=== PATIENT | male | born 1955 | race Caucasian/White ===

== ENCOUNTER 2019-07-24 07:30 | Emergency (ER) | payer MEDICARE, MEDICAID, SELFPAY ==
[2019-07-24] VITALS (10 sets, daily range): BP systolic 148–215; BP diastolic 84–121; PULSE 80–117; RESP 16–21; TEMP 36.6–37.2; O2SAT 96–100; BMI 25.7
--- NOTE | 2019-07-24 07:38 | ED_ITS ---
HPI - Nausea/Vomiting/Diarrhea General: Chief complaint: Abdominal Pain Stated complaint: n/v Time Seen by Provider: 07/24/19 07:38 Source: patient Mode of arrival: ambulatory History of Present Illness: MD elicited complaint: nausea, vomiting and abdominal pain Associated nausea: Yes Associated symtoms: Reports nausea Review of Systems Const: Denies: fever or chills ENMT: Denies: throat pain GI: Reports: abdominal pain, nausea and vomiting; Denies: coffee grounds in vomit or diarrhea PFSH ED PFSH: Medical History Alcoholism Allergic rhinitis due to pollen Chronic viral hepatitis C Malignant hypertension Nicotine abuse Family History Other CAD (coronary artery disease) Cancer Hyperlipidemia Hypertension Stroke Social History Smoking and tobacco status: former smoker Alcohol intake: current Agree to transfusion: Yes (07/18/2019) Physical Exam Narrative: EXAM NARRATIVE: Pt presents to ER with complaints of severe upper abdominal pain for three days. He states he cannot drink water. He also drinks daily and has not been able to keep any fluids down. His BP is very elevated and he appears very anxious. Const: COMMON NORMALS: no apparent distress, oriented x3, no limitations and alert GENERAL APPEARANCE: anxious, well hydrated and odor of alcohol detected ORIENTATION/CONSCIOUSNESS: Yes awake, Yes oriented to person, Yes oriented to place and Yes oriented to time HENMT: COMMON NORMALS: normocephalic, head/scalp atraumatic, external ears normal, EAC's normal, TM's normal bilaterally and external nose normal HEAD & SCALP: normal to inspection, normocephalic and atraumatic FACE & SINUS: no rmal facial exam, sinuses nontender and face symmetric NOSE: external nose normal, nares normal and no nasal discharge EXTERNAL EAR: Yes external ears normal EXTERNAL AUDITORY CANAL: EAC's normal TYMPANIC MEMBRANE: TM's normal bilaterally MOUTH: oral and palatal mucosa normal, lip normal and tongue normal THROAT: posterior oropharynx normal, tonsils normal and uvula midline Eye: COMMON NORMALS: PERRL, EOMs intact bilaterally and conjunctivae normal GENERAL EYE: normal appearance of both eyes and normal light reflex EYELID: eyelids normal CONJUNCTIVA: Yes conjunctivae normal PUPIL: Yes PERRL EOM: Yes EOM abnormal DIRECT OPHTHALMOSCOPY: Yes normal light reflex Neck/C-Spine: COMMON NORMALS: full ROM, no lymphadenopathy, supple, no meningeal signs, no JVD and thyroid normal GENERAL: Yes normal visual inspection THYROID: thyroid normal CERVICAL SPINE: Yes cervical ROM normal and Yes normal cervical lordosis Lymph: LYMPHATIC: no lymphadenopathy noted Chest: COMMONS NORMALS: inspection of chest normal and palpation of chest normal Resp: COMMON NORMALS: normal respiratory effort, no retractions and clear to auscultation bilaterally AUSCULTATION: clear to auscultation bilaterally Cardio: COMMON NORMALS: no JVD, regular rate, regular rhythm, S1 normal heart sound, S2 normal heart sound, no gallops, no clicks, no murmurs, no rub and peripheral pulses 2+ throughout RATE: regular rate RHYTHM: regular rhythm HEART SOUNDS: S1 normal and S2 normal PERIPHERAL PULSES: pulses 2+ throughout GI: COMMON NORMALS: normal to inspection, nondistended, normoactive bowel sounds and soft to palpation; negative for non-tender AUSCULTATION: Yes normoactive bowel sounds PALPATION: Yes soft and Yes guarding (epigastric ) RECTAL EXAM: Yes deferred : COMMON NORMALS: Yes no CVA tenderness BLADDER/KIDNEY EXAM: Yes no CVA tenderness Back/Pelvis: COMMON NORMALS: no CVA tenderness Extremity: COMMON NORMALS: normal to inspection, full ROM, normal capillary refill, no joint enlargement, no clubbing, cyanosis or edema, no calf tenderness and no pedal edema GENERAL: Yes normal exam except as noted Neuro: COMMON NORMALS: oriented x3, moves all extremities, no focal motor deficits, no sensory deficits noted and gait normal SENSORIUM/ORIENTATION: Yes alert, Yes oriented to person, Yes oriented to place and Yes oriented to time MENINGEAL SIGNS: Yes no meningeal signs Psych: COMMON NORMALS: mental status grossly normal, thought process normal, cooperative, affect normal, speech normal and activity/motor behavior normal SPEECH: Yes normal speech THOUGHT PROCESS: normal thought process Skin: COMMON NORMALS: no rashes or lesions noted, no wounds and skin turgor normal GENERAL SKIN EXAM: no rashes or lesions noted and turgor normal Course ED course: Pt very anxious and in pain upon assessment. Pain meds ordered and IV fluids. Pt is pacing and unable to sit still. Reevaluation(s): Reevaluation #1: Awaiting urine. CT negative for any acute findings. Time: 09:26 Reevaluation #2: Pt vomiting after PO challenge. Meds ordered. Time: 10:30 Reevaluation #3: Pt continues to vomit with sips of water. More nausea IM meds given. Pt able to given urine sample. Oral clonidine in 20 min Time: 12:36 Additional Reevaluation(s): Pt resting comfortably after phenergan and able to hold down fluids. Labs unremarkable and UA does not show acute infection. Will proceed with DC. Vitals stable upon DC. Vital Signs: Vital signs: Vital Signs Temperature 97.9 F 07/24/19 07:33 Pulse Rate 98 07/24/19 12:00 Respiratory Rate 19 H 07/24/19 12:00 Blood Pressure 169/107 07/24/19 13:06 Pulse Oximetry 97 07/24/19 12:00 MDM - Nausea/Vomiting/Diarrhea Lab Data: Labs: Lab Results 07/24/19 07/24/19 07/24/19 Range/Units 07:50 07:50 07:50 WBC 10.6 H (4.0-10.0) 10^3/ uL RBC 5.24 (4.1-5.3) 10^6/u L Hgb 17.6 H (11.7-16.6) g/dL Hct 50.5 (42.0-52.0) % MCV 96.4 H (80-94) fL MCH 33.6 (28.0-34.0) pg MCHC 34.9 (30.0-36.0) g/dL RDW 13.2 (12.1-15.1) % Plt Count 247 (130-400) 10^3/c mm MPV 10.7 H (7.4-10.4) fL Neut % (Auto) 75.3 % Lymph % (Auto) 16.8 % [place] % (Auto) 7.1 % Eos % (Auto) 0.1 % Baso % (Auto) 0.3 % Neut # (Auto) 8.0 H (1.8-7.7) 10^3/u L Lymph # (Auto) 1.8 (0.8-4.8) 10^3/u L [place] # (Auto) 0.8 (0.2-0.9) 10^3/u L Eos # (Auto) 0.0 (0.0-0.8) 10^3/u L Baso # (Auto) 0.0 (0.0-0.1) 10^3/u L Nucleated RBC % (a uto) 0 % Nucleated RBCs # 0.0 /100WBC Sodium 139 (136-145) mmol/L Potassium 3.5 (3.5-5.1) mmol/L Chloride 98 (98-107) mmol/L Carbon Dioxide 23 (22-29) mmol/L Anion Gap 21.5 H (5-19) BUN 18 (8-23) mg/dL Creatinine 0.9 (0.7-1.2) mg/dL GFR Calculation 85.8 L (90-130) mL/min Glucose 150 H (65-115) mg/dL Calculated Osmolal ity 287 (285-295) mOsm/k g Calcium 10.8 H (8.5-10.5) mg/dL Total Bilirubin 1.1 (0.15-1.2) mg/dL AST 38 (0-40) U/L ALT 41 (0-41) U/L Alkaline Phosphata se 81 (40-130) IU/L Total Protein 9.0 H (6.6-8.7) g/dL Albumin 5.4 H (3.5-5.2) g/dL Globulin 3.6 (1.3-4.6) g/dL Urine Color (Yellow) Urine Appearance (CLEAR) Urine pH (5-7) Ur Specific Gravit y (1.005-1.030) Urine Protein (Negative) Urine Glucose (UA) (Normal) Urine Ketones (Negative) Urine Blood (Negative) Urine Nitrate (Negative) Urine Bilirubin (NEGATIVE) Urine Urobilinogen (Negative) mg/dL Ur Leukocyte Danna ase (Negative) Urine RBC (0-2) /hpf Urine WBC (0-5) /hpf Ur Squamous Epith Cells (0-5) Urine Bacteria (NONE) Hyaline Casts Urine Mucus Ethyl Alcohol < 10 (0-10) mg/dL //20 Range/Units 12:05 WBC (4.0-10.0) 10^3/ uL RBC (4.1-5.3) 10^6/u L Hgb (11.7-16.6) g/dL Hct (42.0-52.0) % MCV (80-94) fL MCH (28.0-34.0) pg MCHC (30.0-36.0) g/dL RDW (12.1-15.1) % Plt Count (130-400) 10^3/c mm MPV (7.4-10.4) fL Neut % (Auto) % Lymph % (Auto) % [place] % (Auto) % Eos % (Auto) % Baso % (Auto) % Neut # (Auto) (1.8-7.7) 10^3/u L Lymph # (Auto) (0.8-4.8) 10^3/u L [place] # (Auto) (0.2-0.9) 10^3/u L Eos # (Auto) (0.0-0.8) 10^3/u L Baso # (Auto) (0.0-0.1) 10^3/u L Nucleated RBC % (a uto) % Nucleated RBCs # /100WBC Sodium (136-145) mmol/L Potassium (3.5-5.1) mmol/L Chloride (98-107) mmol/L Carbon Dioxide (22-29) mmol/L Anion Gap (5-19) BUN (8-23) mg/dL Creatinine (0.7-1.2) mg/dL GFR Calculation (90-130) mL/min Glucose (65-115) mg/dL Calculated Osmolal ity (285-295) mOsm/k g Calcium (8.5-10.5) mg/dL Total Bilirubin (0.15-1.2) mg/dL AST (0-40) U/L ALT (0-41) U/L Alkaline Phosphata se (40-130) IU/L Total Protein (6.6-8.7) g/dL Albumin (3.5-5.2) g/dL Globulin (1.3-4.6) g/dL Urine Color Yellow (Yellow) Urine Appearance Clear (CLEAR) Urine pH 7 (5-7) Ur Specific Gravit y 1.010 (1.005-1.030) Urine Protein Trace (Negative) Urine Glucose (UA) Norm (Normal) Urine Ketones 1+ H (Negative) Urine Blood 2+ H (Negative) Urine Nitrate Negative (Negative) Urine Bilirubin Neg (NEGATIVE) Urine Urobilinogen Norm (Negative) mg/dL Ur Leukocyte Danna ase Negative (Negative) Urine RBC 0-4 H (0-2) /hpf Urine WBC None (0-5) /hpf Ur Squamous Epith Cells 0-4 H (0-5) Urine Bacteria Trace (NONE) Hyaline Casts 0-4 H Urine Mucus Trace Ethyl Alcohol (0-10) mg/dL Imaging Data^: CT Abd/Pel: Radiologist's impression: [facility] [address] [place] [address] CT Scan Report Signed Patient: Marty Chan Jr Unit #: [id number] : 1955 Age/Sex: 63 / M ADM Date: 07/24/19 Loc: ER Room/Bed: Attending Dr: Ordering Provider/Ordering MD: Karely Rodriguez NP Date of Service: 07/24/19 Procedure(s): CT abdomen [facility] [id number] Accession Number(s): [id number] Report Number: [id number] WS: [id number] CT scan of the abdomen without Oral and IV contrast. Additional two-dime nsional coronal and sagittal reconstruction was performed. 07/24/2019 Clinical Data: abd pain Comparison: None. DLP: 464.[address] scans at [facility] use at least one of these dose optimization techniques: automated exposure control; mA and/or kV adjustment per patient size (includes targeted exams where dose is matched to clinical indication); or iterative reconstruction. Findings: The lower lungs show no nodules, masses or effusions. The liver, spleen, adrenal glands and pancreas are normal. There is a small stone in the gallbladder. The kidneys show bilateral cysts, the largest on the right are 6.6 and 4.9 cm, and the largest on the left is 4.7 cm. No masses, hydronephrosis or renal calculi can be seen. The abdominal aorta is normal in size with minimal calcification in the wall.. The appendix is partly seen but there is no obvious appendicitis. The stomach, visualized small bowel and visualized colon show no abnormalities. There is fecal material in the colon. The lower portion of the small bowel and the distal colon are not imaged. No abscess, adenopathy, ascites, mass, obstruction or free air is seen. The bones of the lower thoracic and lumbar spine show moderate osteoarthritis. CT/CT abdomen wo con [id number] Impression: 1. Negative for acute intra-abdominal abnormalities. 2. Bilateral renal cysts. 3. The portions of the small bowel and colon that are imaged show no abnormalities. Dictated By: Tamie Barger MD Signed By: Tamie Barger MD Signed Date/Time: 07/24/19856 DD/ 7 Discharge Plan Discharge Patient Disposition: Home, Self-Care Clinical Impression: Gastroenteritis, Abdominal pain Condition: Stable Prescriptions: New promethazine 25 mg tablet 25 mg PO TID PRN (Reason: nausea and vomiting) Qty: 10 RF: 0 No Action metoprolol tartrate 25 mg tablet 25 mg PO BID RF: 0 clonidine HCl 0.1 mg tablet 0.1 mg PO BID RF: 0 cetirizine 10 mg tablet 10 mg PO DAILY PRN (Reason: Allergy Symptoms) RF: 0 lisinopril 40 mg tablet 40 mg PO DAILY RF: 0 amlodipine 10 mg tablet 10 mg PO DAILY RF: 0 folic acid 1 mg tablet 1 mg PO DAILY RF: 0 [id number] 1 mg tablet 1 tab PO DAILY RF: 0 thiamine HCl (vitamin B1) 250 mg tablet 250 mg PO DAILY RF: 0 ibuprofen 800 mg tablet 800 mg PO Q8H PRN (Reason: pain) Qty: 90 RF: 0 Referrals: Pattie Esteves FNP [Primary Care Provider] - Meir Benoit MD [Family Provider] - Discharge Diet: Advance as tolerated and Clear Liquid Discharge Activity: Increase activity as tolerated Patient Instructions: Cholecystitis (ED), Abdominal Pain (ED) Activity Restrictions/Additional Instructions: Clear fluids and advance as tolerated. Follow up with PCP if worsening or concerning symptoms. Coding Level of Care Code ED Manufacturing Recruiter for Chg Fwd Exam Comprehensive
--- NOTE | 2019-07-24 08:02 | CT_ITS ---
WS: [id number] CT scan of the abdomen without Oral and IV contrast. Additional two-dimensional coronal and sagittal reconstruction was performed. 07/24/2019 Clinical Data: abd pain Comparison: None. DLP: 464.[address] scans at [facility] use at least one of these dose optimization techniques: automat ed exposure control; mA and/or kV adjustment per patient size (includes targeted exams where dose is matched to clinical indication); or iterative reconstruction. Findings: The lower lungs show no nodules, masses or effusions. The liver, spleen, adrenal glands and pancreas are normal. There is a small stone in the gallbladder. The kidneys show bilateral cysts, the largest on the right are 6.6 and 4.9 cm, and the largest on the left is 4.7 cm. No masses, hydronephrosis or renal calculi can be seen. The abdominal aorta is manuel l in size with minimal calcification in the wall.. The appendix is partly seen but there is no obvious appendicitis. The stomach, visualized small bowel and visualized colon show no abnormalities. There is fecal material in the colon. The lower portion of the small bowel and the distal colon are not imaged. No abscess, adenopathy, ascites, mass, obstruction or free air is seen. The bones of the lower thoracic and lumbar spine show moderate osteoarthritis. CT/CT abdomen wo con [id number] Impression: 1. Negative for acute intra-abdominal abnormalities. 2. Bilateral renal cysts. 3. The portions of the small bowel and colon that are imaged show no abnormalit ies.
[2019-07-24 08:12] LABS: Basophils % 0.3 %; Eosinophils % 0.1 %; Hematocrit 50.5 % (42.0-52.0); Hemoglobin 17.6 g/dL (11.7-16.6); Lymphocytes # 1.8 10^3/uL (0.8-4.8); Lymphocytes % 16.8 %; Mean Corpuscular HGB Conc 34.9 g/dL (30.0-36.0); Mean Corpuscular Hemoglobin 33.6 pg (28.0-34.0); Mean Corpuscular Volume 96.4 fL (80-94); Mean Platelet Volume 10.7 fL (7.4-10.4); Monocytes # 0.8 10^3/uL (0.2-0.9); Monocytes % 7.1 %; Neutrophils % 75.3 %; Nucleated Red Blood Cells % 0 %; Platelet Count 247 10^3/cmm (130-400); Red Blood Count 5.24 10^6/uL (4.1-5.3); Red Cell Distribution Width 13.2 % (12.1-15.1); White Blood Count 10.6 10^3/uL (4.0-10.0)
[2019-07-24] MEDS: sodium chloride 0.9% 500 ML IV (08:16)
[2019-07-24] MEDS: ondansetron 2 mg/ML SDV 2 mL 4 MG IVP ×2 (08:17→10:29)
[2019-07-24] MEDS: morphine 4 mg/mL SDV 1 mL IVP (08:17)
[2019-07-24 08:22] LABS: Alanine Aminotransferase 41 U/L (0-41); Albumin Level 5.4 g/dL (3.5-5.2); Alkaline Phosphatase 81 IU/L (40-130); Anion Gap 21.5 (5-19); Aspartate Amino Transferase 38 U/L (0-40); Blood Urea Nitrogen 18 mg/dL (8-23); Calcium 10.8 mg/dL (8.5-10.5); Carbon Dioxide 23 mmol/L (22-29); Chloride 98 mmol/L (98-107); Globulin 3.6 g/dL (1.3-4.6); Glomerular Filtration Rate 85.8 mL/min (90-130); Glucose 150 mg/dL (65-115); Osmolality Calculated 287 mOsm/kg (285-295); Potassium 3.5 mmol/L (3.5-5.1); Sodium 139 mmol/L (136-145); Total Bilirubin 1.1 mg/dL (0.15-1.2)
--- NOTE | 2019-07-24 08:53 | PC.NURSE ---
Patient continues to be unable to urinate for UA sample at this time. Patient verbalizes that he is not experiencing pain, only discomfort in the upper, middle abdomen. Nausea is reduced, no more vomiting or dry heaving since Zofran administration. Patient does appear shaky; states he is cold. Patient denies any other discomfort or pain at this time. Will continue to monitor.
[2019-07-24 09:24] LABS: Alcohol Level < 10 mg/dL (0-10)
[2019-07-24] MEDS: folic acid 1 MG, multivitamin inj 10 ML, thiamine 100 MG in sodium chloride 0.9% 1,000 ML 271 MG IV (09:55)
--- NOTE | 2019-07-24 10:25 | PC.NURSE ---
Patient given water for fluid tolerance test. Patient swallowed water without difficulty; however, patient began vomiting water back up less than 5 minutes later. ED midlevel notified. BP continues to be elevated, currently 180/103, midlevel notified.
[2019-07-24 12:36] LABS: Add Urine Microscopic? YES; Bilirubin Urine Neg (NEGATIVE); Blood Urine 2+ (Negative); Glucose Urine UA Norm (Normal); Ketones Urine 1+ (Negative); Leukocyte Esterase Urine Negative (Negative); Nitrate Urine Negative (Negative); Protein Urine Trace (Negative); Urine Appearance Clear (CLEAR); Urine Color Yellow (Yellow); Urobilinogen Urine Norm (Negative); pH Urine 7 (5-7)
[2019-07-24 12:38] LABS: Bacteria Urine TRACE; Hyaline Casts Urine 0-4; Mucus Urine TRACE; RBC Urine 0-4 /hpf (0-2); Squamous Epithelial Cell Urine 0-4 (0-5)
[2019-07-24 12:39] LABS: Add Urine Culture? No
[2019-07-24] MEDS: promethazine 25 mg/mL SDV 1 mL 50 MG IM (12:40)
[2019-07-24] MEDS: cloNIDine 0.1 mg Tablet PO (13:06)
== END 2019-07-24 13:55 | disposition home or self-care (01) ==
PROVIDERS: Emergency Provider Nurse Practitioner Family; Family Provider Family Medicine; PCP Nurse Practitioner
DX: K52.9 Noninfective gastroenteritis and colitis, unspecified (principal); Z87.891 Personal history of nicotine dependence
CPT/HCPCS: 12345; 36415; 74150; 80053; 80307; 81001; 85025; 96360; 96361; 96372; 96374; 96375; 96376; 99283; J2270; J2405; J2550; J3411; J3490; J7030; J7040

== ENCOUNTER → 2019-10-12 11:04 | Outpatient (BNVA) | payer MEDICARE, MEDICAID, SELFPAY | PROVIDERS: Family Provider Family Medicine; PCP Nurse Practitioner; Visit Provider Family Medicine | DX: I10 Essential (primary) hypertension (principal); Z12.5 Encounter for screening for malignant neoplasm of prostate | CPT/HCPCS: 80053; 80061; 82044; 85025; G0103 ==

== ENCOUNTER → 2019-12-21 09:10 | Outpatient (BNVA) | payer MEDICARE, MEDICAID, SELFPAY | PROVIDERS: Family Provider Family Medicine; PCP Nurse Practitioner; Visit Provider Family Medicine | DX: F10.20 Alcohol dependence, uncomplicated (principal); R79.89 Other specified abnormal findings of blood chemistry; I10 Essential (primary) hypertension; Z68.25 Body mass index [BMI] 25.0-25.9, adult; F17.211 Nicotine dependence, cigarettes, in remission; Z71.89 Other specified counseling; Z86.19 Personal history of other infectious and parasitic diseases; R94.5 Abnormal results of liver function studies | CPT/HCPCS: 86705; 86706; 86709; 86803; 87340 ==

== ENCOUNTER → 2020-03-03 11:42 | Outpatient (BNVA) | payer MEDICARE, MEDICAID, SELFPAY | PROVIDERS: Family Provider Family Medicine; PCP Nurse Practitioner; Visit Provider Family Medicine | DX: R76.8 Other specified abnormal immunological findings in serum (principal); F10.20 Alcohol dependence, uncomplicated; I10 Essential (primary) hypertension; Z71.41 Alcohol abuse counseling and surveillance of alcoholic; F17.211 Nicotine dependence, cigarettes, in remission | CPT/HCPCS: 80053; 82105; 82607; 83036; 85025; 87522; 87902 ==

== ENCOUNTER 2020-03-05 10:12 | Outpatient (CLI) | payer MEDICARE, MEDICAID, SELFPAY ==
--- NOTE | 2020-03-05 10:15 | US_ITS ---
WS: [id number] RIGHT UPPER QUADRANT ULTRASOUND HISTORY: Positive hepatitis C antibody test. COMPARISON: None available. Liver: 17.7 cm in length. Mildly enlarged liver. Echotexture is normal. No mass. No bile duct dilatat ion. Gallbladder: Normally distended gallbladder with stones. No pericholecystic fluid or wall thickening. There is a soft tissue nodule in the gallbladder measuring 1.0 cm. No increased vascularity. Ring do wn artifact from the gallbladder wall from adenomyomatosis. CBD: 0.5 cm Pancreas: Normal size and echogenicity. Right kidney: 11.0 cm in length. Kidney is normal size. There are multiple cysts which have been prev iously described from the RIGHT kidney. The largest from the mid kidney measures 6.8 x 4.8 x 5.5 cm. No hydronephrosis. Aorta and IVC: Unremarkable abdominal aorta and IVC. No ascites. US/US liver [id number] IMPRESSION: 1. Cholelithiasis without acute cholecystitis. 2. Soft tissue nodule measuring 1 cm in the gallbladder. May be a polyp. Due t o its size consider surgical removal to exclude neoplasm. 3. Gallbladder adenomyomatosis. 4. Multiple large RIGHT renal cysts.
== END 2020-03-05 10:13 | disposition home or self-care (01) ==
LOC: RAD 10:16
PROVIDERS: PCP Nurse Practitioner; Visit Provider Family Medicine
DX: R76.8 Other specified abnormal immunological findings in serum (principal); K80.20 Calculus of gallbladder without cholecystitis without obstruction; D13.5 Benign neoplasm of extrahepatic bile ducts; N28.1 Cyst of kidney, acquired
CPT/HCPCS: 76705

== ENCOUNTER 2020-08-08 18:16 | Emergency (ER) | payer MEDICARE, MEDICAID, SELFPAY ==
--- NOTE | 2020-08-08 18:23 | XRR_ITS ---
PROCEDURE INFORMATION: Exam: XR Left Hand Exam date and time: 08/08/2020 6:24 PM Age: 64 years old Clinical indication: Injury or trauma; Other: Crushed left hand; Blunt trauma (contusions or hematomas); Injury date: 08/08/2020 TECHNIQUE: Imaging protocol: XR Left hand. Views: 3 or more views. Total images: 3 COMPARISON: No relevant prior studies available. FINDINGS: Bones/joints: No visible acute osseous abnormality, fracture, subluxation, or dislocation. No radiographically visible joint effusion. Mild primary osteoarthritis. Soft tissues: Soft tissues without evidence of edema, swelling, contusion, emphysema, or radiopaque foreign body. XR/XR hand LT min 3V* [id number] IMPRESSION: Nonacute.
[2020-08-08 18:26] VITALS: BP 150/96; PULSE 92; RESP 18; TEMP 36.8; O2SAT 94; BMI 25.7
--- NOTE | 2020-08-08 18:55 | W.ED.EXTPRO ---
HPI - Extremity Problem General: Chief complaint: Extremity Injury, Upper Stated complaint: suspects broken left hand Time Seen by Provider: 08/08/20 18:51 Source: patient Mode of arrival: ambulatory Limitations: no limitations History of Present Illness: HPI Narrative: 64-year-old male who was working and smashed his left hand. He has pain in the dorsum of his hand with a contusion. Patient states his pain is sharp in nature and rates it a 5 out of 10. He has full range of motion of his hand. Denies any other injuries. Associated symptoms: Deny chest pain, fever(s) or rash Review of Systems Const: Denies: fever(s), chills, body aches or change in appetite Eyes: Denies: blurry vision or eye discomfort ENMT: Denies: throat pain or dental pain Card: Denies: chest pain Resp: Denies: dyspnea GI: Denies: abdominal pain, nausea, vomiting or diarrhea : Denies: dysuria Musc: Reports: extremity pain; Denies: neck pain or back pain Skin/Breast: Denies: rash Neuro: Denies: headache(s) Psych: Denies: depression Ciro/Lymph: Denies: easy bruising All/Imm: Denies: urticaria PFSH ED PFSH: Medical History (Updated 08/08/20 @ 18:56 by Matt Mike MD) Alcoholism Allergic rhinitis due to pollen Malignant hypertension Nicotine abuse Family History Other CAD (coronary artery disease) Cancer Hyperlipidemia Hypertension Stroke Social History Smoking and tobacco status: former smoker Alcohol intake: current Alcohol intake frequency: few times a week Alcohol type: beer and hard liquor Agree to transfusion: Yes (07/18/2019) Physical Exam Const: COMMON NORMALS: no acute distress, patient oriented x3 and healthy appearing HENMT: COMMON NORMALS: normocephalic and atraumatic HEAD & SCALP: normocephalic and atraumatic Eye: COMMON NORMALS: Equal, round and reactive pupils present and EOMs intact bilaterally PUPIL: Yes Equal, round and reactive pupils present Neck/C-Spine: COMMON NORMALS: full ROM and supple Chest: COMMONS NORMALS: normal inspection of the chest and normal palpation of entire chest wall Resp: COMMON NORMALS: normal respiratory effort, No retractions, No use of accessory muscles and clear to auscultation bilaterally AUSCULTATION: clear to auscultation bilaterally Cardio: COMMON NORMALS: regular rate, regular rhythm and No murmurs present (Cardio) RATE: regular rate RHYTHM: regular rhythm GI: COMMON NORMALS: Normal to inspection, nondistended, normoactive bowel sounds present, Soft to palpation, non-tender and no masses PALPATION: Yes Soft to palpation Extremity: COMMON NORMALS: full ROM NARRATIVE EXTREMITY EXAM: Does have a contusion over the dorsum of his left hand with no abnormality Neuro: COMMON NORMALS: patient oriented x3, moves all extremities and no focal motor deficits Psych: COMMON NORMALS: mental status grossly normal, Normal thought process present and cooperative THOUGHT PROCESS: Normal thought process present Skin: COMMON NORMALS: no rashes or lesions noted and no wounds GENERAL SKIN EXAM: no rashes or lesions noted Course Vital Signs: Vital signs: Vital Signs Temperature 98.2 F 08/08/20 18:26 Pulse Rate 92 08/08/20 18:26 Respiratory Rate 18 08/08/20 18:26 Blood Pressure 150/96 08/08/20 18:26 Pulse Oximetry 94 08/08/20 18:26 MDM - Extremity (Nontraumatic) MDM Narrative: Medical decision making narrative: Patient presents here with a hand contusion. He is well-appearing here and has no signs of major fracture. He is able to full function of his hand. No other injuries noted. Imaging Data^: X-ray left hand: Attestation: I personally reviewed and interpreted this imaging study as follows: My impression: No acute abnormality Discharge Plan Discharge Patient Disposition: Home Clinical Impression: Contusion of hand Qualifiers: Encounter type: initial encounter Laterality: left Qualified Code(s): S60.222A - Contusion of left hand, initial encounter Condition: Stable Prescriptions: New Naprosyn 500 mg tablet 500 mg PO BID PRN (Reason: pain) Qty: 20 RF: 0 No Action amlodipine 10 mg tablet 10 mg PO DAILY 90 Days Qty: 90 RF: 1 clonidine HCl 0.1 mg tablet 0.1 mg PO BID 90 Days Qty: 180 RF: 1 lisinopril 30 mg tablet 30 mg PO BID 90 Days Qty: 180 RF: 1 metoprolol tartrate 25 mg tablet 25 mg PO BID 90 Days Qty: 180 RF: 1 folic acid 1 mg tablet 1 mg PO DAILY 90 Days Qty: 90 RF: 1 Discharge Orders: Discharge ED (Routine); Ordered 08/08/20 Ordered By: Matt Mike Referrals: Pattie Esteves FNP [Primary Care Provider] - 1-3 days Discharge Diet: Advance as tolerated Discharge Activity: Resume usual activity Patient Instructions: Contusion in Adults (ED) Coding Level of Care Code ED Office Helper Clerical for Ezekiel Recinos
[2020-08-08 19:01] VITALS: RESP 16
== END 2020-08-08 19:01 | disposition home or self-care (01) ==
PROVIDERS: Emergency Provider Emergency Medicine; PCP Nurse Practitioner
DX: S60.222A Contusion of left hand, initial encounter (principal); I10 Essential (primary) hypertension; Z87.891 Personal history of nicotine dependence; X58.XXXA Exposure to other specified factors, initial encounter
CPT/HCPCS: 73130; 99282

== ENCOUNTER → 2020-11-14 08:12 | Outpatient (BNVA) | payer MEDICARE, MEDICAID, SELFPAY | PROVIDERS: PCP Family Medicine; Visit Provider Family Medicine | DX: I10 Essential (primary) hypertension (principal); F10.20 Alcohol dependence, uncomplicated | CPT/HCPCS: 80053 ==